=== PATIENT | female | born 1950 | race Caucasian/White ===

== ENCOUNTER → 2024-01-08 08:54 | Outpatient (BNVA) | payer MEDICARE, SELFPAY | PROVIDERS: Referring Provider Nurse Practitioner Family; Visit Provider Psychiatry & Neurology Neurology | DX: G62.9 Polyneuropathy, unspecified (principal); G72.9 Myopathy, unspecified; R29.898 Other symptoms and signs involving the musculoskeletal system; M79.606 Pain in leg, unspecified; E55.9 Vitamin D deficiency, unspecified; R42 Dizziness and giddiness; R55 Syncope and collapse; R25.2 Cramp and spasm; R41.89 Other symptoms and signs involving cognitive functions and awareness | CPT/HCPCS: 36415; 82085; 82306; 82550; 83735; 85651; 86038; 86140; 86431; 99203 ==

== ENCOUNTER → 2024-04-29 10:06 | Outpatient (BNVA) | payer MEDICARE, SELFPAY | PROVIDERS: Referring Provider Psychiatry & Neurology Neurology; Visit Provider Psychiatry & Neurology Neurology | DX: R25.2 Cramp and spasm (principal); R29.898 Other symptoms and signs involving the musculoskeletal system | CPT/HCPCS: 95812; 95885; 95910 ==

== ENCOUNTER → 2024-07-13 09:39 | Outpatient (BNVA) | payer MEDICARE, SELFPAY | PROVIDERS: PCP Nurse Practitioner Family; Visit Provider Internal Medicine Rheumatology | DX: R29.898 Other symptoms and signs involving the musculoskeletal system (principal); R76.8 Other specified abnormal immunological findings in serum; E03.9 Hypothyroidism, unspecified | CPT/HCPCS: 36415; 80053; 82085; 82550; 83519; 85025; 85651; 86140; 86160; 86162; 86235; 86255; 86376; 99204 ==

== ENCOUNTER → 2024-08-25 11:03 | Outpatient (BNVA) | payer MEDICARE, SELFPAY | PROVIDERS: PCP Nurse Practitioner Family; Referring Provider Internal Medicine Rheumatology; Visit Provider Internal Medicine | DX: E03.9 Hypothyroidism, unspecified (principal); R76.8 Other specified abnormal immunological findings in serum; R29.898 Other symptoms and signs involving the musculoskeletal system | CPT/HCPCS: 99204 ==

== ENCOUNTER → 2024-11-10 13:57 | Outpatient (BNVA) | payer MEDICARE, SELFPAY | PROVIDERS: PCP Nurse Practitioner Family; Referring Provider Internal Medicine Rheumatology; Visit Provider Internal Medicine | DX: E03.9 Hypothyroidism, unspecified (principal) | CPT/HCPCS: 36415; 84439; 84443 ==